=== PATIENT | female | born 1995 | race Caucasian/White ===

== ENCOUNTER 2016-09-04 19:35 | Emergency (ER) | payer BC ==
[~2016-09-04] VITALS: Ht 170.2 cm; Wt 67.7 kg
[~2016-09-04 19:35] MED LIST: FERR1TAB23; LEVO50TA PO; MTR600X PO; PRENTAB26 PO; SERT50TA PO
[2016-09-04 19:39] VITALS: TEMP 36.8; Ht 170.2 cm; Wt 67.7 kg
--- NOTE | 2016-09-04 23:11 | EMERGENCY ROOM VISIT NOTE ---
History First contact with patient: 21:19 Chief Complaint: RESPIRATORY PROBLEMS Stated Complaint: STRUGGLING TO BREATHE, TIGHT THROAT Nursing Triage Summary: Patient reports feels like her throat is swollen and tight and difficulty breathing since friday. History of Present Illness The patient is a 21 year old female who presents to the Emergency Room with complaints of feeling like her throat is tight. The patient states that her symptoms started on Friday. She feels like there is something swollen in the throat region that is making it difficulty to breathe and swallow. She is able to swallow foods without any difficulty. The patient denies any sore throat or cold symptoms. The patient states that it feels similar to when she had issues with her thyroid in the past. She has had problems with her thyroid since she was 4 years old. She has been on levothyroxine in the past. She went off of it for months ago. Her last TSH was in April and she thinks it was normal. She called her PCP yesterday about her symptoms and she was instructed by the office staff to that it was a life-threatening situation and that she should come to the emergency room. The patient did not feel that it was life- threatening and has a small at home and therefore she did not come to the emergency room until this evening. The patient states that her normal PCP is out for a hip replacement. The patient currently denies any chest pain or shortness of breath. Review of Systems 10 system review was performed and was negative unless stated otherwise history of present illness. Past Medical/Surgical History Medical Problems: (1) Cramping affecting , antepartum (2) Uterine contractions at greater than 20 weeks of gestation (3) Vaginal discharge during in third trimester Family History FHx: gallbladder disease Kidney stones Social History Smoking Status: Never Smoker Alcohol Use: none Marital Status: single Housing Status: lives with family Occupation Status: student Current/Historical Medications No Active Prescriptions or Reported Meds Allergies Coded Allergies: No Known Allergies (Unverified , 09/04/16) Physical Exam Vital Signs Date Time Temp Pulse Resp B/P Pulse Ox O2 Delivery O2 Flow Rate FiO2 09/04/16 19:39 36.8 66 18 115/68 98 Room Air Physical Exam VITALS: Temperature 36.8, blood pressure 115/68, pulse 66, respiratory rate 18, pulse ox 98% on room air GENERAL: 21-year-old white female appears in no acute distress. She is sitting comfortably on the stretcher. MENTAL Status: Alert and oriented 3. EARS: Canals clear. TMs without fluid level noted. NOSE: Nasal mucosa without erythema or engorgement. PHARYNX: No erythema or edema noted. Airway is adequate. NECK: Supple, no lymphadenopathy noted. No carotid bruits noted. Thyroid without enlargement. She does have some tenderness over the right lobe of the thyroid. No palpable nodules. LUNGS: Clear auscultation without wheezes rales or rhonchi. CARDIAC: Regular rate and rhythm without murmur. Pulses is full and equal throughout. Medical Decision & Procedures Laboratory Results Test 09/04/16 21:38 Thyroid Stimulating Hormone (TSH) 1.850 uIu/ml (0.300-4.500) ED Course The patient was evaluated. I discussed the case with Dr. Holland. He agrees that a thyroid ultrasound is not an emergency that this can be performed on an outpatient basis. The patient was not in any respiratory distress. A TSH was ordered and was within the normal range at 1.8. The patient was informed of the findings. I discussed with the patient at great length that the ultrasound needs to be obtained as an outpatient. The patient verbalized understanding. The patient was discharged home in stable condition. Medical Decision Differential diagnosis include acute thyroiditis, thyroid nodule, strep pharyngitis, peritonsillar abscess, allergic reaction The patient was not in any respiratory distress. She appeared completely fine on examination. Therefore feel that she can be worked up as an outpatient. Impression Primary Impression: Throat tightness Departure Information Dispostion Home / Self-Care Condition GOOD Prescriptions No Active Prescriptions or Reported Meds Forms WORK / SCHOOL INSTRUCTIONS, HOME CARE DOCUMENTATION FORM, IMPORTANT VISIT INFORMATION Patient Instructions My [facility] Additional Instructions Recommend that you obtain a thyroid ultrasound as an outpatient for further evaluation. Follow-up with your PCP for recheck.
[2016-09-04 23:16] VITALS: BP 116/71; PULSE 80; O2SAT 98
== END 2016-09-04 23:23 | disposition home or self-care (01) ==
LOC: C.EDB 19:37 → C.EDC 23:23
DX: R07.0 Pain in throat (principal); E07.9 Disorder of thyroid, unspecified

== ENCOUNTER → 2017-06-26 | Day surgery (SDC) | payer BC ==
--- NOTE | 2017-06-23 10:56 | HISTORY & PHYSICAL EXAMINATION ---
DATE OF ADMISSION: 06/26/2017 CHIEF COMPLAINT: Pelvic pain, dyspareunia, and heavy vaginal bleeding. HISTORY OF PRESENT ILLNESS: The patient is a 21-year-old 1, para 1. She delivered her child on 05/05/2016. Her general health is complicated by hypothyroidism, for which she is on replacement for several years. She has over 6-month history of heavy periods, at time lasting for over 12 days, coming every 28-30 days, extremely heavy bleeding for 4-5 days, passing large clots and soaking over a pad an hour. She has also had severe cramping, 5 to 6 of these days and is unresponsive to nonnarcotic pain reliever and is severe enough to interfere with her lifestyle. She has also had a long-term history of dyspareunia, specifically pain on deep penetration. This has been going on for over a year and painful enough to have her avoid having intercourse, which has also been getting progressively worse. She also complains of severe cramping with her periods when she is having heavy bleeding and this has been unresponsive to nonnarcotic pain reliever. She is presently being scheduled for D&C and diagnostic laparoscopy. It should be noted that she has a mother who has endometriosis and a sister, who has endometriosis. PAST MEDICAL HISTORY: She has a boy, 13 months, in good health. ALLERGIES: No known drug allergies. PAST SURGICAL HISTORY: She had a tendon repair of her left thumb. MEDICAL HISTORY: Hypothyroidism for 3 years. SOCIAL HISTORY: No smoking. No excessive alcohol intake. She has a job and goes to school. FAMILY HISTORY: Mom is 51, had a EDWIN for endometriosis. Father 48, in good health. Three sisters and one brother. One sister had had diagnosed endometriosis and presently is on medical treatment. REVIEW OF SYSTEMS: HEAD: No symptoms of frequent or severe headaches. EARS: No symptoms of frequent ear infections or difficulty hearing. NOSE: No symptoms of frequent nosebleeds or difficulty breathing through her nose. THROAT: No symptoms of frequent or severe sore throat or difficulty swallowing. RESPIRATORY SYSTEM: No history of asthma, chest pain, or shortness of breath. PHYSICAL EXAMINATION: GENERAL: Well-developed and well-nourished 21-year-old white female, alert and oriented x3 and cooperative, in no acute distress, appears her stated age. EYES: Conjunctivae are pink. Sclerae white. No evidence of jaundice. EARS: Had normal light reflex bilaterally. NOSE: Had normal mucosa. Septum is midline. There were no polyps. THROAT: No erythema or evidence of infection. Teeth are in good state of repair. HEAD: Normocephalic. Normal distribution of hair. NECK: Supple. Trachea midline. Thyroid is not enlarged. There is no adenopathy appreciated. Both carotids are of good intensity. CHEST: Clear to auscultation and percussion. No wheezes, rales or rhonchi appreciated. HEART: Regular rhythm. S1 and S2 are normal. BREASTS: Normal. ABDOMEN: Soft and nontender. PELVIC: Normal appearing cervix. Bimanual exam revealed exquisite tenderness in the uterosacral ligament area. No adnexal masses appreciated. MUSCULOSKELETAL: Revealed no calf tenderness. IMPRESSIONS OF THIS CASE: Hypothyroidism, hypermenorrhea, dyspareunia and suspected endometriosis.
[2017-06-23 12:14] LABS: BASO % 0.5 %; BASO ABS # 0.03 K/uL (0-0.2); EOS ABS # 0.06 K/uL (0-0.5); HEMATOCRIT 37.5 % (37-47); HEMOGLOBIN 12.2 g/dL (12.0-16.0); IG# 0.01 K/uL (0.00-0.02); LYMPH % 35.9 %; LYMPH ABS # 2.19 K/uL (1.2-3.4); MEAN CELL VOLUME 77.6 fL (80-100); MEAN CORPUSCULAR HEMOGLOBIN 25.3 pg (25-34); MEAN CORPUSCULAR HGB CONC 32.5 g/dl (32-36); MEAN PLATELET VOLUME 11.3 fL (7.4-10.4); MONO % 9.5 %; MONO ABS # 0.58 K/uL (0.11-0.59); NEUT % 52.9 %; NEUT ABS # 3.23 K/uL (1.4-6.5); PLATELET COUNT 258 K/uL (130-400); RED CELL DISTRIBUTION WIDTH CV 14.7 % (11.5-14.5); RED CELL DISTRIBUTION WIDTH SD 41.6 fL (36.4-46.3)
[2017-06-25 13:41] VITALS: Ht 167.6 cm; Wt 65.9 kg
[~2017-06-26] VITALS: Ht 167.6 cm; Wt 65.9 kg
[~2017-06-26] MED LIST changes: +ATROPINE SULFATE 0.1 MG/ML 5ML SYR IV PRN; +BUPIVACAINE 0.5 % 5 MG/1 ML MPF 30ML VIAL ONE; +DEXAMETHASONE SOD INJ 4 MG/ML VIAL ONE; +EpHEDrine SULFATE INJ 50 MG/ML AMP IV PRN; +EpHEDrine SULFATE INJ 50 MG/ML AMP ONE; +EpINEphrine INJ 1MG/ML AMP 1 MG/ML AMP ONE; +FENTANYL CITRATE INJ 50 MCG/1 ML 2 ML VIAL IV PRN; +FENTANYL CITRATE INJ 50 MCG/1 ML 2 ML VIAL ONE; -FERR1TAB23; +GLYCOPYRROLATE INJ 0.2 MG/ML VIAL ONE; +HYDROCODONE/ACETAMOPHEN 5/325MG TAB PO PRN; +HYDROmorphone INJ 1 MG/ML SYR IV PRN; +IBUPROFEN 200 MG TAB ONE; +IBUPROFEN 600 MG TAB PO PRN; +KETOROLAC TROMETHAMINE 30 MG/ML VIAL IV. PRN; +LACTATED RINGER'S 1000ML 1,000 ML IV SCH; +LEVO112T4 PO; -LEVO50TA PO; +LIDOCAINE HCL 2% 2 ML VIAL (20MG/ML) ONE; +MIDAZOLAM HCL 1 MG/ML 2ML VIAL ONE; -MTR600X PO; +NEOSTIGMINE METHYLSULFATE 5 MG/5 ML SYR ONE; +ONDANSETRON INJ 2 MG/ML 2 ML VIAL IV PRN; +ONDANSETRON INJ 2 MG/ML 2 ML VIAL ONE; +OXYCODONE/ACETAMINOPHEN 5-325 TAB PO PRN; -PRENTAB26 PO; +PROMETHAZINE HCL INJ 12.5 MG in SODIUM CHLORIDE 0.9% 50ML 50 ML IV PRN; +PROPOFOL IV EMULSION 10 MG/ML 20 ML VIAL IV ONE; +ROCURONIUM BROMIDE 10 MG/ML 5 ML VIAL IV ONE; -SERT50TA PO; +SODIUM CHLORIDE 0.9% 1000ML 1,000 ML IV SCH; +SODIUM CHLORIDE 0.9% INJ 10 ML VIAL ONE
--- NOTE | 2017-06-26 11:57 | History & Physical Bridge Note ---
H&P Re-Evaluation Bridge Note: I have examined the patient, reviewed the History & Physical and in the interval since the performance of the History & Physical I have noted the following changes of clinical significance: No changes noted
--- NOTE | 2017-06-26 13:20 | [facility] Post Operative Brief Note ---
Immediate Operative Summary Operative Date Jun 26, 2017. Pre-Operative Diagnosis Hypermenorrhea, severe dysmenorrea Post-Operative Diagnosis same Procedure(s) Performed Dilatation and Currettage, Laparoscopic evaluation Surgeon Dr Corrales Bank Runner Surgeon(s) none Estimated Blood Loss 10ml Findings EXTENSIVE ENDOMETRIOSIS Specimens A) endometrial currettings B)perineal biopsy Complication(s) None Disposition Recovery Room / PACU
--- NOTE | 2017-06-26 13:22 | Discharge Instructions-SurgCtr ---
Discharge Instructions Date of Service Jun 26, 2017. Visit Reason for Visit: Hypermenorrhea, Severe Dysmenorrhea;Pre-Op Discharge Discharge Diagnosis / Problem: ENDOMETRIOSIS Discharge Goals Goal(s): Improve function, Therapeutic intervention Activity Recommendations Activity Limitations: as noted below ACTIVITY RECOMMENDATIONS: * Avoid tampons, douching, hot tubs, pools, and intercourse until bleeding has stopped. * May shower as usual. * No strenuous activity for 24-48 hours. After 24-48 hours, you may do anything you feel like doing (driving and sports are okay). SPECIAL CARE INSTRUCTIONS: Special Diet: * Mild nausea may occur in the immediate post-operative period. * Take clear liquids such as tea, cola or bouillon until all nausea has subsided; you may then resume your normal diet. Special Care: * Light bleeding and vaginal spotting can last from a few days to 3-4 weeks. Call your doctor if bleeding becomes heavier than the heaviest part of your period. * Check your temperature twice a day for one week. If it goes above 100.4 degrees Fahrenheit (38.0 Celsius), notify your doctor. * Call your doctor's office for an appointment for 6 weeks after your surgery. FOLLOW-UP VISIT: Call your doctor's office for an appointment for 6 weeks after your surgery. SPECIAL CARE INSTRUCTIONS: * Check temperature twice daily for one week. Report any elevation over 100.4 degrees Fahrenheit (38.0 degrees Celsius). * Call office in the next few days for return appointment. * You may experience some vaginal spotting and/or bleeding, this is normal for one or two weeks and should not alarm you. * Post-operative discomfort may consist of a sore throat, a "bloated" feeling and pain in the shoulders. These are normal symptoms which usually only last for two or three days. FOLLOW UP VISIT: Keep any scheduled doctor appointments. Anesthesia . Post Anesthesia Instructions: If you have had General Anesthesia or IV Sedation: * Do not drive today. * Resume driving when surgeon permits. * Do not make important decisions or sign legal documents today. * Call surgeon for: 1. Temperature elevations greater than 101 degrees F. 2. Uncontrollable pain. 3. Excessive bleeding. 4. Persistent nausea and vomiting. 5. Medication intolerance (nausea, vomiting or rash). * For nausea and vomiting use only clear liquids such as: tea, soda, bouillon until nausea subsides, then gradually increase diet as tolerated. * If you have any concerns or questions, call your surgeon's office. If physician is unavailable and it is an emergency, call 911 or go to the nearest emergency room. . Instructions / Follow-Up Instructions / Follow-Up ACTIVITY RECOMMENDATIONS: * Avoid tampons, douching, hot tubs, pools, and intercourse until bleeding has stopped. * May shower as usual. * No strenuous activity for 24-48 hours. After 24-48 hours, you may do anything you feel like doing (driving and sports are okay). SPECIAL CARE INSTRUCTIONS: Special Diet: * Mild nausea may occur in the immediate post-operative period. * Take clear liquids such as tea, cola or bouillon until all nausea has subsided; you may then resume your normal diet. Special Care: * Light bleeding and vaginal spotting can last from a few days to 3-4 weeks. Call your doctor if bleeding becomes heavier than the heaviest part of your period. * Check your temperature twice a day for one week. If it goes above 100.4 degrees Fahrenheit (38.0 Celsius), notify your doctor. * Call your doctor's office for an appointment for 6 weeks after your surgery. FOLLOW-UP VISIT: Call your doctor's office for an appointment for 6 weeks after your surgery. ACTIVITY RECOMMENDATIONS: * Rest the first 2-3 days. You should be back to your normal activity levels by day 3. * No heavy lifting for 2 weeks. * No intercourse, tampons or douching for 1-2 weeks. * You may shower the next day. * Do not drive anytime that you are taking narcotic pain medicines. RETURN TO SCHOOL/WORK: * May return to school or work after 2-3 days. DIET: Nausea may occur in the immediate post-operative period. If so, take clear liquids such as tea, bouillon, apple juice until all nausea has subsided, then resume usual diet. MEDICATIONS: Resume previous medications unless instructed otherwise by your surgeon. Ibuprofen 200mg 2-3 tablets every 4-6 hours as needed -- OR -- Aleve 2 tablets every 8-12 hours as needed for post-operative discomfort Medications are over the counter. Tylenol may be used if above medications are contraindicated or not preferred. Medication should be taken with food or milk. Do not take on an empty stomach. SPECIAL CARE INSTRUCTIONS: * Check temperature twice daily for one week. report any elevation over 101 degrees. * You may experience some vagina spotting and/or bleeding. This is normal for 1 -2 weeks and should not be heavier than a normal period. If it is unusual in amount, call your physician. * Post-operative discomfort may consist of a sore throat, a "bloated" feeling and pain in the shoulders. these are normal symptoms, which usually only last for 2-3 days. * Remove band-aids tomorrow and shower. There is no need to replace band-aids unless there is drainage or discomfort. FOLLOW UP VISIT: Call your doctor's office for a post-operative 2 week visit if not already scheduled. Diet Recommendations Home Diet: resume previous diet Procedures Procedures Performed: Dilatation and Currettage, Laparoscopic evaluation Pending Studies Studies pending at discharge: no Medical Emergencies . Who to Call and When: Medical Emergencies: If at any time you feel your situation is an emergency, please call 911 immediately. . Non-Emergent Contact Non-Emergency issues call your: Retail Client Solutions Consultant Call Non-Emergent contact if: temperature is above 100.5 . . "Provider Documentation" section prepared by Vick Corrales. .
--- NOTE | 2017-06-26 14:01 | OPERATIVE REPORT ---
DATE OF OPERATION: 06/26/2017 INDICATIONS FOR SURGERY: Heavy prolonged vaginal bleeding associated with pelvic pain and dyspareunia. PREOPERATIVE DIAGNOSIS: Suspected endometriosis. POSTOPERATIVE DIAGNOSIS: Same. Pathology pending. SURGEON: Dr. Corrales. ESTIMATED BLOOD LOSS: 10 mL. ANESTHESIA: General. PROCEDURE: Diagnostic laparoscopy, D&C, peritoneal biopsy. OPERATIVE FINDINGS AND PROCEDURE: The patient was brought to the OR table and correctly identified by armband and conversation. General anesthesia was administered. Perineum and vagina were painted with Betadine paint along with the lower abdomen and draped in the usual sterile fashion. A metal catheter was used to empty the bladder. Careful pelvic exam under anesthesia revealed an anteverted uterus. There were no adnexal masses appreciated. Weighted speculum was placed in the posterior vagina. Anterior lip of the cervix was grasped with single tooth tenaculum. It was difficult to get into the endocervical canal. I had to use a stat several times, opening it and spreading the endocervical canal. I finally was able to sound the endometrium. It sounded to 8 cm. I used graduated dilators to gradually dilate the cervix and a small sharp curette was used to curette out the endometrial cavity. This was productive of a scant amount of normal-appearing tissue. Following this, an acorn cannula was inserted into the cervical canal to tenaculum, which was placed at 12 o'clock on the cervix. Attention was now turned to the lower abdomen. The subumbilical area was infiltrated with lidocaine with epinephrine. Subumbilical stab wound was made. Veress needle was inserted. Position was checked with normal saline. Then, 2.5 to 3 liters of carbon dioxide gas was passed under low pressure. Incision was then widened laterally. The Veress needle was removed. A large cannula and trocar was inserted. Trocar was removed. Laparoscope was inserted. Good visualization of pelvic structures was obtained at this time. A second puncture site was made 3 fingerbreadths above the pubic symphysis and the midline was infiltrated with Marcaine with epinephrine. A stab wound was placed and a 5-mm trocar and sleeve was inserted under direct visualization. Blunt probe was placed into the abdominal cavity for manipulation of the tubes and ovaries along with the acorn cannula. What could be seen was early endometriosis involving both lateral pelvic osorio and the cul-de-sac area. The cul-de-sac area also had a lot of bloody regurgitated endometrial fluid. I used a suction aspirator to suction this fluid out and then saline to wash the peritoneal surface clean. I was then able to visualize several typical endometriotic lesions between the 2 uterosacral ligaments with the typical color and puckering and scarring. I biopsied one inside the uterosacral ligaments on the patient's right side and submitted the 2 biopsy specimens for pathological evaluation. Hemostasis was excellent. There was essentially no bleeding. I photographed the biopsy site after the procedure was performed. I also photographed the extent of endometriosis along the lateral pelvic osorio. There were just multiple small endometrial implants. There was not any specific area that could be cauterized. I also flipped both the ovaries up. They were freely mobile. The ovarian surfaces did not have any endometrial implants on them nor did the tubes. Following this, fluid was removed, the gas was expressed manually and instruments were removed. Ports were cleansed with Betadine and sutured with interrupted Vicryl. I attest to the content of the Intraoperative Record and any orders documented therein. Any exception s are noted below.
--- NOTE | 2017-06-26 14:20 | Anesthesia Progress Nt - [facility] ---
Anesthesia Post Op Note Date & Time Jun 26, 2017 at 14:20 Vital Signs Pain Intensity: 3 Vital Signs Past 12 Hours Date Time Temp Pulse Resp B/P (MAP) Pulse Ox O2 Delivery O2 Flow Rate FiO2 06/26/17 14:16 59 23 06/26/17 14:16 60 23 97 06/26/17 14:15 96/60 06/26/17 14:15 37.1 58 22 96/60 97 Room Air 06/26/17 14:11 60 22 06/26/17 14:11 61 22 97 06/26/17 14:10 96/56 06/26/17 14:06 58 21 97 06/26/17 14:06 58 21 06/26/17 14:05 96/57 06/26/17 14:01 59 24 06/26/17 14:01 58 24 100 06/26/17 14:00 97/53 06/26/17 13:56 59 17 100 06/26/17 13:56 58 17 06/26/17 13:55 99/56 06/26/17 13:51 57 15 06/26/17 13:51 57 15 100 06/26/17 13:50 98/53 06/26/17 13:46 60 21 100 06/26/17 13:46 62 21 06/26/17 13:45 94/55 06/26/17 13:41 65 24 06/26/17 13:41 64 24 100 06/26/17 13:40 99/52 06/26/17 13:36 63 19 06/26/17 13:36 63 19 100 06/26/17 13:35 101/56 06/26/17 13:31 70 25 100 06/26/17 13:31 70 25 06/26/17 13:30 99/53 06/26/17 13:26 36.4 98 16 101/59 100 Mask 6 06/26/17 13:26 84 27 101/57 100 06/26/17 13:26 84 27 06/26/17 11:40 36.8 86 16 110/74 (86) 98 Room Air Notes Mental Status: alert / awake / arousable, participated in evaluation Pt Amnestic to Procedure: Yes Nausea / Vomiting: adequately controlled Pain: adequately controlled Airway Patency, RR, SpO2: stable & adequate BP & HR: stable & adequate Hydration State: stable & adequate Anesthetic Complications: no major complications apparent
[2017-06-26 14:24] VITALS: TEMP 37.1
[2017-06-26 14:52] VITALS: BP 95/59; PULSE 79; O2SAT 100
== END | disposition home or self-care (01) ==
LOC: X.SURG 11:07
PROVIDERS: ATTEND Obstetrics & Gynecology
DX: N93.9 Abnormal uterine and vaginal bleeding, unspecified (principal); R10.2 Pelvic and perineal pain; N94.10 Unspecified dyspareunia; Z79.899 Other long term (current) drug therapy

== ENCOUNTER 2020-10-16 03:57 | Inpatient (IN) ==
[2020-10-16] MEDS ORDERED: OXYTOCIN 30 UNITS/500 ML BAG IV PRN ×3 (04:46→23:03)
[2020-10-16] MEDS ORDERED: PENICILLIN G POTASSIUM 6 MU in DEXTROSE 5% 250 ML IV ONE (05:00)
[2020-10-16 05:02] LABS: Mean Corpuscular Hgb Conc 33.1 g/dL (32-36)
[2020-10-16] MEDS: LACTATED RINGER'S 1,000 ML IV PRN ×3 (05:14→16:04)
[2020-10-16 05:15] LABS: Hematocrit (blood only) 34.7 % (37-47); Hemoglobin 11.5 g/dL (12.0-16.0); Mean Corpuscular Hemoglobin 28.5 pg (25-34); Mean Corpuscular Volume 86.1 fL (80-100); RDW Coefficient of Variation 13.5 % (11.5-14.5); RDW Standard Deviation 42.9 fL (36.4-46.3); Red Blood Count 4.03 M/uL (4.2-5.4); White Blood Count 8.44 K/uL (4.8-10.8)
[2020-10-16 05:20] LABS: Mean Platelet Volume 13.2 fL (7.4-10.4); Platelet Count 146 K/uL (130-400); Platelet Estimate Normal (Normal)
--- NOTE | 2020-10-16 07:18 | History & Physical Report ---
Date of Service October 16, 2020 Assessment & Plan (1) Uterine contractions at greater than 20 weeks of gestation: 25 yo at 39.2 wks with polyhydramnios, GBS VSS Afebrile FHR reassuring COVID testing negative PCN for GBS Epidural for pain Continue to monitor (2) Polyhydramnios affecting in third trimester: Admission and Anticipated Discharge Date Admission Date: October 16, 2020 History of Present Illness Primary Care Provider: Zara Epperson PA-C Patient is a 25-year-old -0-0-1 at 39 weeks and 2 days of gestation who was scheduled for induction of labor this morning for polyhydramnios. She woke up at 3 AM with contractions and presented to labor and delivery. She denies leakage of fluid or vaginal bleeding. She reports good movements. Her has been complicated by 1) hypothyroidism on levothyroxine 2) polyhydramnios has been less than 30 cm. 3) GBS positive 4) anemia Allergies Allergy/AdvReac Type Severity Reaction Status Date / Time No Known Allergies Allergy Verified 10/06/20 13:38 Home Medications Medication Instructions Recorded Confirmed Type PNV cmb#95-ferrous fumarate-FA 1 tab PO HS 09/22/20 10/16/20 History [] levothyroxine [Synthroid] 125 mcg PO QAM 09/22/20 10/16/20 History sertraline [Zoloft] 50 mg PO HS 09/22/20 10/16/20 History ferrous sulfate 325 mg PO HS 10/06/20 10/16/20 History Patient History Medical History Anxiety History of endometriosis Hypothyroidism Family History Other No significant family history Social History Smoking Status: Never smoker Hx Alcohol Use: No Hx Substance Use: No Preferred Language: Italian Communication Ability: Effective Acoustic Intelligence Specialist Required: No Beliefs That Will Affect Care: None marital status: Current Living Situation: Spouse and Family Other Information That Helps Us Care for You: No Feels Safe at Home: Yes OB History Full-term spontaneous vaginal delivery in 2016 and, delivered a viable male infant by myself [employer] History No history of STDs, no chlamydia, gonorrhea, no herpes Review of Systems All systems reviewed & are unremarkable except as noted in HPI & below Physical Exam Constitutional: WD/WN, vitals as above well developed, well nourished and + acute distress (with ctxs) Gastrointestinal (Abdomen): normal bowel sounds, soft, nontender, no hepatosplenomegaly (gravid) Bed side US vertex Genitourinary: Manual OB Exam: + cervical dilation 3 cm, + cervical effacement 50% and + station high OB Exam Monitor Tracing: + external uterine monitor used and + category I Results & Data ([facility]) Vital Signs (Past 12 Hours) Vital Signs Temp Pulse Resp BP Pulse Ox 10/16/20 07:11 76 99 10/16/20 07:06 72 99 10/16/20 07:01 77 98 10/16/20 06:59 36.4 C L 16 10/16/20 06:55 84 126/79 10/16/20 04:18 70 121/58 L 10/16/20 04:15 36.5 C 20 10/16/20 04:12 70 121/58 L Laboratory Results Lab Results 10/16/20 10/16/20 10/16/20 Range/Units 04:45 04:45 04:53 WBC 8.44 (4.8-10.8) K/uL RBC 4.03 L (4.2-5.4) M/uL Hgb 11.5 L (12.0-16.0) g/dL Hct 34.7 L (37-47) % MCV 86.1 (80-100) fL MCH 28.5 (25-34) pg MCHC 33.1 (32-36) g/dL RDW Std Deviation 42.9 (36.4-46.3) fL RDW Coeff of Aditya 13.5 (11.5-14.5) % Plt Count 146 (130-400) K/uL MPV 13.2 H (7.4-10.4) fL Platelet Estimate Normal (Normal) COVID[facility]19 [facility] SARS-[facility]-2, RNA, NAAT NEGATIVE (NEGATIVE)
[2020-10-16] MEDS ORDERED: BUPIVACAINE 0.25% 30 ML VIAL ONE (07:19)
[2020-10-16] MEDS ORDERED: fentaNYL citrate 100 MCG/2 ML VIAL ONE (07:19)
[2020-10-16] MEDS ORDERED: ePHEDrine sulfate 50 MG/ML AMP ONE (07:19)
[2020-10-16] MEDS ORDERED: SODIUM CHLORIDE 0.9% INJ 10 ML VIAL ONE (07:19)
[2020-10-16] MEDS ORDERED: fentaNYL 2MCG/ML ROPIVACAINE 1.25MG/ML 100 ML BAG EPI ONE (07:20)
[2020-10-16] MEDS ORDERED: NALOXONE HCL 1 MG in SODIUM CHLORIDE 0.9% 1000ML 1,000 ML IV PRN (07:46)
[2020-10-16] MEDS ORDERED: ePHEDrine sulfate 50 MG/ML AMP IV PRN (07:46)
[2020-10-16] MEDS ORDERED: diphenhydrAMINE 50 MG/ML VIAL IV PRN (07:46)
[2020-10-16] MEDS ORDERED: NALOXONE HCL 0.4 MG/1 ML VIAL/CARP IV PRN (07:46)
[2020-10-16] MEDS ORDERED: ONDANSETRON INJ 2 MG/ML 2 ML VIAL IV PRN (07:46)
--- NOTE | 2020-10-16 07:49 | Anesthesiology Consultation ---
Date of Service October 16, 2020 Assessment & Plan Chart Review Chart Review: Patient NOT seen in Pre Admission Testing and Acceptable Risk for Labor Epidural Consults Requested none ASA ASA2 Proposed Anesthesia Anesthesia Type: Labor Epidural and CSE Risk / Benefits Reviewed With: PT / POA / Parent / Guardian, Accepts Plan and Informed Consent Obtained History Height/Weight Height: 5 ft 7 in Weight: 94.347 kg Allergies Allergy/AdvReac Type Severity Reaction Status Date / Time No Known Allergies Allergy Verified 10/06/20 13:38 Medications Home Medications Medication Instructions Recorded Confirmed Last Taken PNV cmb#95-ferrous fumarate-FA 1 tab PO HS 09/22/20 10/16/20 10/15/20 20:00 [] levothyroxine [Synthroid] 125 mcg PO QAM 09/22/20 10/16/20 10/15/20 06:00 sertraline [Zoloft] 50 mg PO HS 09/22/20 10/16/20 10/15/20 20:00 ferrous sulfate 325 mg PO HS 10/06/20 10/16/20 10/15/20 20:00 Active Medications Generic Name Dose Route Start Last Admin Trade Name Freq PRN Reason Stop Dose Admin Lactated Ringer's 1,000 mls @ 125 mls/hr 10/16/20 04:46 10/16/20 07:00 Lr IV 10/18/20 04:45 999 mls/hr .Q8H PRN Infusion L&D Protocol Protocol NPO Date Last Intake of Fluids: 10/16/20 Time Last Intake of Fluids: 06:30 Date Last Intake of Solids: 10/15/20 Time Last Intake of Solids: 20:30 Past Medical History Medical History Anxiety History of endometriosis Hypothyroidism Exercise / Class Metabolic Activity II 4-5 Yardwork/Stairs/Walk up hill Past Family History Family History Other No significant family history Past Anesthesia History No Hx of Anesthesia Complications and No Family Hx of Anesthesia Complications History of PONV No Hx of PONV and No Hx of Motion Sickness Social History Smoking Status: Never smoker Hx Alcohol Use: No Hx Substance Use: No Review of Systems no chest pain or sob Physical Exam Vital Signs Last Vital Signs Temp 36.4 C L 10/16/20 06:59 Pulse 86 10/16/20 07:36 Resp 16 10/16/20 06:59 BP 126/79 10/16/20 06:55 Pulse Ox 100 10/16/20 07:36 ENMT Mouth: no TMJ abnormality Thyromental Distance: > or= 3.5 Finger Breadths Mallampati Class: II Neck normal visual inspection Respiratory normal respiratory effort Auscultation: lungs clear to auscultation bilaterally Cardiovascular Rate/Rhythm: regular rate and regular rhythm Musculoskeletal Spine: normal cervical ROM Neurologic moves all extremities Psychiatric Orientation: alert and oriented x 3 Testing Laboratory Results 10/16/20 04:53
[2020-10-16] MEDS: PENICILLIN G POTASSIUM 3 MU in DEXTROSE 5% 100 ML IV PRN ×3 (09:00→16:52)
--- NOTE | 2020-10-16 09:19 | Progress Note ---
Date of Service October 16, 2020 Assessment & Plan Admission and Anticipated Discharge Date Admission Date: October 16, 2020 Subjective pt doing well FHR; CAT1 Ctx ; 7-8mins Epidural analgesia in place VE; /-3 discussed starting Pitocin augmentation. pt agreed Results & Data ([facility]) Vital Signs (Past 12 Hours) Vital Signs Temp Pulse Resp BP Pulse Ox 10/16/20 09:14 65 99/56 L 10/16/20 09:12 69 94 10/16/20 09:07 72 93 10/16/20 09:02 66 94 10/16/20 08:57 72 94 10/16/20 08:53 61 103/57 L 10/16/20 08:52 65 92 10/16/20 08:48 64 109/57 L 10/16/20 08:47 66 92 10/16/20 08:43 62 110/59 L 10/16/20 08:42 65 93 10/16/20 08:39 73 108/55 L 10/16/20 08:37 85 92 10/16/20 08:34 75 118/63 10/16/20 08:32 65 93 10/16/20 08:30 62 14 112/55 L 10/16/20 08:27 64 93 10/16/20 08:23 64 105/57 L 10/16/20 08:22 65 95 10/16/20 08:21 69 111/57 L 94 10/16/20 08:19 59 L 113/58 L 10/16/20 08:17 64 110/61 96 10/16/20 08:14 64 109/61 10/16/20 08:12 66 109/63 99 10/16/20 08:10 67 107/58 L 10/16/20 08:09 69 110/54 L 10/16/20 08:07 65 108/61 100 10/16/20 08:04 62 113/61 10/16/20 08:03 67 16 103/59 L 10/16/20 08:02 69 99 10/16/20 07:57 84 99 10/16/20 07:52 83 99 10/16/20 07:36 86 100 10/16/20 07:31 69 99 10/16/20 07:26 66 98 10/16/20 07:21 67 99 10/16/20 07:16 66 99 10/16/20 07:11 76 99 10/16/20 07:06 72 99 10/16/20 07:01 77 98 10/16/20 06:59 36.4 C L 16 10/16/20 06:55 84 126/79 10/16/20 04:18 70 121/58 L 10/16/20 04:15 36.5 C 20 10/16/20 04:12 70 121/58 L
[2020-10-16] MEDS: fentaNYL 2MCG/ML ROPIVACAINE 1.25MG/ML 100 ML BAG EPI PRN ×2 (14:34→19:35)
--- NOTE | 2020-10-16 15:34 | Progress Note ---
Date of Service October 16, 2020 Assessment & Plan Admission and Anticipated Discharge Date Admission Date: October 16, 2020 Subjective Pt doing well FHR; CAT1 Ctx 2-4mins Pit; 5MU VE 10/bulging membranes/ AROM with scalp electrode.- +meconium VE after AROM- /-2 No Umbilical cord palpated in vagina Results & Data ([facility]) Vital Signs (Past 12 Hours) Vital Signs Temp Pulse Resp BP Pulse Ox 10/16/20 15:27 77 97 10/16/20 15:22 77 129/59 L 96 10/16/20 15:17 70 97 10/16/20 15:12 73 96 10/16/20 15:07 71 95 10/16/20 15:06 67 109/62 10/16/20 15:02 68 95 10/16/20 14:57 67 95 10/16/20 14:55 37 C 20 10/16/20 14:52 66 106/57 L 96 10/16/20 14:47 74 95 10/16/20 14:42 67 95 10/16/20 14:37 66 108/54 L 97 10/16/20 14:32 69 96 10/16/20 14:30 18 10/16/20 14:27 69 95 10/16/20 14:22 69 106/55 L 95 10/16/20 14:17 69 95 10/16/20 14:12 71 95 10/16/20 14:07 69 102/56 L 95 10/16/20 14:02 68 95 10/16/20 14:00 18 10/16/20 13:57 72 95 10/16/20 13:52 71 110/59 L 95 10/16/20 13:47 69 94 10/16/20 13:42 73 95 10/16/20 13:37 70 106/54 L 94 10/16/20 13:32 70 95 10/16/20 13:30 18 10/16/20 13:27 65 95 10/16/20 13:23 67 106/56 L 10/16/20 13:22 69 94 10/16/20 13:17 73 94 10/16/20 13:12 69 95 10/16/20 13:07 72 106/53 L 94 10/16/20 13:02 82 96 10/16/20 13:00 16 10/16/20 12:57 73 96 10/16/20 12:52 73 95 10/16/20 12:51 73 105/58 L 10/16/20 12:47 76 95 10/16/20 12:42 72 95 10/16/20 12:37 73 96 10/16/20 12:36 70 105/54 L 10/16/20 12:32 68 96 10/16/20 12:30 16 10/16/20 12:27 72 95 10/16/20 12:22 64 122/67 96 10/16/20 12:17 65 95 10/16/20 12:12 67 96 10/16/20 12:07 66 124/70 97 10/16/20 12:02 66 96 10/16/20 12:00 16 10/16/20 11:57 68 97 10/16/20 11:52 66 96 10/16/20 11:51 64 118/61 10/16/20 11:47 72 96 10/16/20 11:42 71 96 10/16/20 11:37 82 118/56 L 96 10/16/20 11:32 90 96 10/16/20 11:30 16 10/16/20 11:27 70 95 10/16/20 11:22 74 95 10/16/20 11:21 71 127/63 10/16/20 11:17 75 95 10/16/20 11:12 71 95 10/16/20 11:07 72 118/62 95 10/16/20 11:02 69 96 10/16/20 11:01 37.5 C 20 10/16/20 10:57 77 95 10/16/20 10:52 75 95 10/16/20 10:51 71 125/63 10/16/20 10:47 76 95 10/16/20 10:42 75 95 10/16/20 10:37 74 119/62 95 10/16/20 10:32 75 95 10/16/20 10:30 20 10/16/20 10:27 72 95 10/16/20 10:22 76 95 10/16/20 10:17 70 96 10/16/20 10:15 85 131/97 10/16/20 10:12 71 95 10/16/20 10:07 69 95 10/16/20 10:02 70 95 10/16/20 10:00 18 10/16/20 09:59 66 120/56 L 10/16/20 09:57 75 95 10/16/20 09:52 70 96 10/16/20 09:47 68 96 10/16/20 09:44 71 119/58 L 10/16/20 09:42 67 95 10/16/20 09:37 66 97 10/16/20 09:32 67 99/55 L 94 10/16/20 09:30 16 10/16/20 09:27 78 94 10/16/20 09:22 76 93 10/16/20 09:17 70 94 10/16/20 09:14 65 99/56 L 10/16/20 09:12 69 94 10/16/20 09:07 72 93 10/16/20 09:02 66 94 10/16/20 09:00 18 10/16/20 08:57 72 94 10/16/20 08:53 61 103/57 L 10/16/20 08:52 65 92 10/16/20 08:48 64 109/57 L 10/16/20 08:47 66 92 10/16/20 08:43 62 110/59 L 10/16/20 08:42 65 93 10/16/20 08:39 73 108/55 L 10/16/20 08:37 85 92 10/16/20 08:34 75 118/63 10/16/20 08:32 65 93 10/16/20 08:30 62 14 112/55 L 10/16/20 08:27 64 93 10/16/20 08:23 64 105/57 L 10/16/20 08:22 65 95 10/16/20 08:21 69 111/57 L 94 10/16/20 08:19 59 L 113/58 L 10/16/20 08:17 64 110/61 96 10/16/20 08:14 64 109/61 10/16/20 08:12 66 109/63 99 10/16/20 08:10 67 107/58 L 10/16/20 08:09 69 110/54 L 10/16/20 08:07 65 108/61 100 10/16/20 08:04 62 113/61 10/16/20 08:03 67 16 103/59 L 10/16/20 08:02 69 99 10/16/20 07:57 84 99 10/16/20 07:52 83 99 10/16/20 07:36 86 100 10/16/20 07:31 69 99 10/16/20 07:26 66 98 10/16/20 07:21 67 99 10/16/20 07:16 66 99 10/16/20 07:11 76 99 10/16/20 07:06 72 99 10/16/20 07:01 77 98 10/16/20 06:59 36.4 C L 16 10/16/20 06:55 84 126/79 10/16/20 04:18 70 121/58 L 10/16/20 04:15 36.5 C 20 10/16/20 04:12 70 121/58 L
[2020-10-16] MEDS ORDERED: METHYLERGONOVINE MALEATE 0.2 MG/ML AMP ONE (21:58)
[2020-10-16] MEDS ORDERED: ERYTHROMYCIN OP OINT 1 GM PKT ONE (21:58)
[2020-10-16] MEDS ORDERED: SUPERCREAM 0.870% 15 GM JAR EXT PRN (23:03)
[2020-10-16] MEDS ORDERED: HYDROCORTISONE ACETATE 25 MG SUPP PR PRN (23:03)
[2020-10-16] MEDS ORDERED: DIPHTHERIA/TETANUS/PERTUSSIS 0.5 ML SYR/VIAL IM ONE (23:03)
[2020-10-16] MEDS ORDERED: BENZOCAINE 20% AER SPR 82.5 GM CAN EXT PRN (23:03)
[2020-10-16] MEDS ORDERED: oxyCODONE/ACETAMINOPHEN 5mg/325mg TAB PO PRN (23:03)
[2020-10-16] MEDS ORDERED: ACETAMINOPHEN 325 MG TAB PO PRN (23:03)
[2020-10-16] MEDS ORDERED: bisacodyL 10 MG SUPP PR PRN (23:03)
[2020-10-16] MEDS ORDERED: IBUPROFEN 600 MG TAB PO ONE (23:50)
[2020-10-17 00:04] LABS: Base Excess Cord Venous Blood -7.1 mEq/L (-7.7-1.9); Cord Venous Blood HCO3 17 mmol/L (18.4-26.8); Cord Venous Blood PCO2 30 mmHg (30.4-57.2); Cord Venous Blood PO2 30 mmHg (14.1-43.3); Cord Venous Blood pH 7.37 (7.20-7.44)
[2020-10-17 00:05] LABS: Base Excess Cord Arterial Bld -7.2 mEq/L (-9-1.8); CO2 Cord Arterial Blood 43 mmHg (39.1-73.5); HCO3 Cord Arterial Blood 19 mmol/L (19.7-28.5); Oxygen Sat Cord Arterial Blood < 60.0 % (<60); PO2 Cord Arterial Blood 15 mmHg (4.1-31.7); pH Cord Arterial Blood 7.28 (7.1-7.38)
[2020-10-17] MEDS: ACETAMINOPHEN W/CODEINE #3 1 TAB PO PRN ×3 (01:27→19:11)
[2020-10-17] MEDS: IBUPROFEN 600 MG TAB PO PRN ×3 (06:12→17:16)
[2020-10-17] MEDS: LEVOTHYROXINE SODIUM 125 MCG TABLET PO SCH (06:19)
[2020-10-17 07:30] LABS: Hematocrit (blood only) 23.9 % (37-47); Mean Corpuscular Hemoglobin 27.9 pg (25-34); Mean Corpuscular Hgb Conc 33.5 g/dL (32-36); Mean Corpuscular Volume 83.3 fL (80-100); Mean Platelet Volume 13.2 fL (7.4-10.4); Platelet Count 116 K/uL (130-400); RDW Coefficient of Variation 13.8 % (11.5-14.5); RDW Standard Deviation 42.4 fL (36.4-46.3); Red Blood Count 2.87 M/uL (4.2-5.4); White Blood Count 14.71 K/uL (4.8-10.8)
--- NOTE | 2020-10-17 07:47 | Anesthesiology Progress Note ---
Date of Service October 17, 2020 Anesthesia Post Procedure Vital Signs Vital Signs: Temp Pulse Pulse Resp BP BP Pulse Ox 10/17/20 03:10 36.8 C 76 20 116/76 97 10/17/20 01:35 36.7 C 67 18 117/63 98 10/17/20 01:04 78 97 10/17/20 00:59 74 96 10/17/20 00:57 67 18 121/68 10/17/20 00:54 72 96 10/17/20 00:49 71 97 10/17/20 00:44 74 97 10/17/20 00:42 74 115/71 10/17/20 00:39 91 H 98 10/17/20 00:34 78 99 10/17/20 00:29 81 98 10/17/20 00:24 76 98 10/17/20 00:19 82 97 10/17/20 00:14 93 H 98 10/17/20 00:12 82 145/60 H 10/17/20 00:09 79 99 10/17/20 00:04 69 98 10/16/20 23:59 70 100 10/16/20 23:58 68 150/62 H 10/16/20 23:57 18 10/16/20 23:54 70 100 10/16/20 23:49 76 99 10/16/20 23:44 64 18 128/61 99 10/16/20 23:39 64 99 10/16/20 23:34 65 98 10/16/20 23:29 60 99 10/16/20 23:27 58 L 18 138/72 10/16/20 23:24 64 98 10/16/20 23:19 67 99 10/16/20 23:14 71 99 10/16/20 23:12 206 H 18 109/77 10/16/20 23:09 73 98 10/16/20 23:04 71 94 10/16/20 22:59 61 99 10/16/20 22:57 64 18 100/71 10/16/20 22:54 69 99 10/16/20 22:49 76 98 10/16/20 22:44 61 99 10/16/20 22:39 61 100 10/16/20 22:36 55 L 145/74 H 10/16/20 22:34 60 99 10/16/20 22:29 61 99 10/16/20 22:24 60 99 10/16/20 22:21 60 147/70 H 10/16/20 22:19 59 L 99 10/16/20 22:14 62 100 10/16/20 22:09 61 100 10/16/20 22:06 61 130/67 10/16/20 22:04 61 100 10/16/20 21:59 89 100 10/16/20 21:57 90 113/63 10/16/20 21:55 176 H 179/135 H 10/16/20 21:54 104 H 100 10/16/20 21:52 93 H 207/145 H 10/16/20 21:49 88 98 10/16/20 21:44 62 98 10/16/20 21:39 85 93 10/16/20 21:36 68 151/67 H 10/16/20 21:34 79 99 10/16/20 21:30 18 10/16/20 21:29 62 96 10/16/20 21:24 73 98 10/16/20 21:19 58 L 98 10/16/20 21:14 66 95 10/16/20 21:09 70 98 10/16/20 21:04 67 98 10/16/20 21:00 18 10/16/20 20:59 74 96 10/16/20 20:54 75 97 10/16/20 20:48 69 98 10/16/20 20:42 69 96 10/16/20 20:37 64 96 10/16/20 20:32 68 96 10/16/20 20:30 18 10/16/20 20:27 70 97 10/16/20 20:22 75 97 10/16/20 20:21 85 106/56 L 10/16/20 20:17 81 97 10/16/20 20:12 54 L 97 10/16/20 20:07 60 98 10/16/20 20:02 66 97 10/16/20 20:00 18 10/16/20 19:57 68 97 10/16/20 19:52 64 98 10/16/20 19:51 68 132/63 10/16/20 19:47 65 97 10/16/20 19:42 58 L 97 10/16/20 19:37 62 135/75 96 10/16/20 19:32 61 97 10/16/20 19:30 18 10/16/20 19:27 96 H 94 10/16/20 19:22 62 97 10/16/20 19:21 58 L 143/69 H 10/16/20 19:17 63 99 10/16/20 19:12 67 99 10/16/20 19:08 36.8 C 55 L 149/73 H 10/16/20 19:07 57 L 98 10/16/20 19:02 61 100 10/16/20 19:00 18 10/16/20 18:57 58 L 99 10/16/20 18:52 51 L 100 10/16/20 18:51 53 L 134/78 10/16/20 18:47 71 100 10/16/20 18:42 80 99 10/16/20 18:37 67 97 10/16/20 18:36 62 108/59 L 10/16/20 18:32 68 97 10/16/20 18:30 16 10/16/20 18:27 65 95 10/16/20 18:22 64 108/52 L 95 10/16/20 18:17 62 93 10/16/20 18:12 59 L 93 10/16/20 18:07 61 93 10/16/20 18:06 60 115/57 L 10/16/20 18:02 59 L 93 10/16/20 18:00 18 10/16/20 17:57 61 93 10/16/20 17:53 57 L 111/56 L 10/16/20 17:52 57 L 94 10/16/20 17:47 59 L 95 10/16/20 17:42 63 97 10/16/20 17:37 57 L 96 10/16/20 17:36 62 102/56 L 10/16/20 17:32 63 94 10/16/20 17:30 18 10/16/20 17:27 59 L 94 10/16/20 17:23 59 L 114/55 L 10/16/20 17:22 60 94 10/16/20 17:17 60 95 10/16/20 17:12 62 94 10/16/20 17:07 59 L 115/57 L 94 10/16/20 17:02 59 L 96 10/16/20 17:00 20 10/16/20 16:57 62 97 10/16/20 16:53 36.9 C 16 10/16/20 16:52 62 132/58 L 97 10/16/20 16:47 62 95 10/16/20 16:42 60 96 10/16/20 16:37 59 L 120/58 L 95 10/16/20 16:32 64 96 10/16/20 16:30 16 10/16/20 16:27 61 95 10/16/20 16:22 56 L 122/59 L 97 10/16/20 16:17 57 L 97 10/16/20 16:12 59 L 97 10/16/20 16:08 53 L 117/59 L 10/16/20 16:07 54 L 97 10/16/20 16:02 56 L 98 10/16/20 16:00 18 10/16/20 15:57 59 L 99 10/16/20 15:52 63 98 10/16/20 15:51 56 L 122/63 10/16/20 15:47 59 L 97 10/16/20 15:42 59 L 98 10/16/20 15:37 79 97 10/16/20 15:36 73 128/87 10/16/20 15:32 73 96 10/16/20 15:30 18 10/16/20 15:27 77 97 10/16/20 15:22 77 129/59 L 96 10/16/20 15:17 70 97 10/16/20 15:12 73 96 10/16/20 15:07 71 95 10/16/20 15:06 67 109/62 10/16/20 15:02 68 95 10/16/20 15:00 18 10/16/20 14:57 67 95 10/16/20 14:55 37 C 20 10/16/20 14:52 66 106/57 L 96 10/16/20 14:47 74 95 10/16/20 14:42 67 95 10/16/20 14:37 66 108/54 L 97 10/16/20 14:32 69 96 10/16/20 14:30 18 10/16/20 14:27 69 95 10/16/20 14:22 69 106/55 L 95 10/16/20 14:17 69 95 10/16/20 14:12 71 95 10/16/20 14:07 69 102/56 L 95 10/16/20 14:02 68 95 10/16/20 14:00 18 10/16/20 13:57 72 95 10/16/20 13:52 71 110/59 L 95 10/16/20 13:47 69 94 10/16/20 13:42 73 95 10/16/20 13:37 70 106/54 L 94 10/16/20 13:32 70 95 10/16/20 13:30 18 10/16/20 13:27 65 95 10/16/20 13:23 67 106/56 L 10/16/20 13:22 69 94 10/16/20 13:17 73 94 10/16/20 13:12 69 95 10/16/20 13:07 72 106/53 L 94 10/16/20 13:02 82 96 10/16/20 13:00 16 10/16/20 12:57 73 96 10/16/20 12:52 73 95 10/16/20 12:51 73 105/58 L 10/16/20 12:47 76 95 10/16/20 12:42 72 95 10/16/20 12:37 73 96 10/16/20 12:36 70 105/54 L 10/16/20 12:32 68 96 10/16/20 12:30 16 10/16/20 12:27 72 95 10/16/20 12:22 64 122/67 96 10/16/20 12:17 65 95 10/16/20 12:12 67 96 10/16/20 12:07 66 124/70 97 10/16/20 12:02 66 96 10/16/20 12:00 16 10/16/20 11:57 68 97 10/16/20 11:52 66 96 10/16/20 11:51 64 118/61 10/16/20 11:47 72 96 10/16/20 11:42 71 96 10/16/20 11:37 82 118/56 L 96 10/16/20 11:32 90 96 10/16/20 11:30 16 10/16/20 11:27 70 95 10/16/20 11:22 74 95 10/16/20 11:21 71 127/63 10/16/20 11:17 75 95 10/16/20 11:12 71 95 10/16/20 11:07 72 118/62 95 10/16/20 11:02 69 96 05/10/21 11:01 37.5 C 20 10/16/20 10:57 77 95 10/16/20 10:52 75 95 10/16/20 10:51 71 125/63 10/16/20 10:47 76 95 10/16/20 10:42 75 95 10/16/20 10:37 74 119/62 95 10/16/20 10:32 75 95 10/16/20 10:30 20 10/16/20 10:27 72 95 10/16/20 10:22 76 95 10/16/20 10:17 70 96 10/16/20 10:15 85 131/97 10/16/20 10:12 71 95 10/16/20 10:07 69 95 10/16/20 10:02 70 95 10/16/20 10:00 18 10/16/20 09:59 66 120/56 L 10/16/20 09:57 75 95 10/16/20 09:52 70 96 10/16/20 09:47 68 96 10/16/20 09:44 71 119/58 L 10/16/20 09:42 67 95 10/16/20 09:37 66 97 10/16/20 09:32 67 99/55 L 94 10/16/20 09:30 16 10/16/20 09:27 78 94 10/16/20 09:22 76 93 10/16/20 09:17 70 94 10/16/20 09:14 65 99/56 L 10/16/20 09:12 69 94 10/16/20 09:07 72 93 10/16/20 09:02 66 94 10/16/20 09:00 18 10/16/20 08:57 72 94 10/16/20 08:53 61 103/57 L 10/16/20 08:52 65 92 10/16/20 08:48 64 109/57 L 10/16/20 08:47 66 92 10/16/20 08:43 62 110/59 L 10/16/20 08:42 65 93 10/16/20 08:39 73 108/55 L 10/16/20 08:37 85 92 10/16/20 08:34 75 118/63 10/16/20 08:32 65 93 10/16/20 08:30 62 14 112/55 L 10/16/20 08:27 64 93 10/16/20 08:23 64 105/57 L 10/16/20 08:22 65 95 10/16/20 08:21 69 111/57 L 94 10/16/20 08:19 59 L 113/58 L 10/16/20 08:17 64 110/61 96 10/16/20 08:14 64 109/61 10/16/20 08:12 66 109/63 99 10/16/20 08:10 67 107/58 L 10/16/20 08:09 69 110/54 L 10/16/20 08:07 65 108/61 100 10/16/20 08:04 62 113/61 10/16/20 08:03 67 16 103/59 L 10/16/20 08:02 69 99 10/16/20 07:57 84 99 10/16/20 07:52 83 99 Pain Intensity Bilateral Abdomen: Pain Intensity: 0 Bilateral Back: Pain Intensity: 5 Perineal: Pain Intensity: 5 Notes Mental Status: alert / awake / arousable and participated in evaluation Nausea / Vomiting: adequately controlled Pain: adequately controlled Airway Patency, RR, SpO2: stable & adequate BP & HR: stable & adequate Hydration State: stable & adequate Neuraxial Anesthesia: was administered and sensory block is resolving Anesthetic Complications: no major complications apparent and Pt Satisfied with anesthetic care Notes: Epidural site clean, dry and intact. No signs of edema, erythema or bruising at insertion site. Pt instructed to request anesthesia if she has residual lower extremity numbness or if she develops lower extremity pain or weakness, back pain or headache.
--- NOTE | 2020-10-17 08:07 | Delivery Summary ---
DATE OF OPERATION: 10/16/2020 The patient delivered a live infant in left occiput anterior presentation. There was nuchal cord, which was easily reduced. There was also moderate meconium, which was known prior to delivery. Infant was delivered, placed on mother's abdomen. Delayed cord clamp was performed. Cord blood and cord gases were obtained. Placenta was spontaneously delivered. Inspection of the perineum showed a third-degree midline laceration which was repaired in layers with 2-0 and 3-0 Vicryl. Rectal exam post repair showed good sphincter tone, no sutures were palpated in the rectum. All instruments were removed from the vagina and accounted for x2 including sponges, needles, and retractors. Baby and mother are doing well in recovery. Estimated blood loss was 500 mL. I attest to the content of the Intraoperative Record and any orders documented therein. Any exception s are noted below.
[2020-10-17] MEDS: DOCUSATE SODIUM 100 MG CAP PO SCH ×2 (08:40→21:43)
[2020-10-17] MEDS: PRENATAL VITAMIN 1 TAB PO SCH (08:40)
[2020-10-17] MEDS: FERROUS SULFATE 325 MG TAB PO SCH (08:40)
--- NOTE | 2020-10-17 08:45 | Obstetrical Progress Note ---
Date of Service October 17, 2020 Assessment & Plan Admission and Anticipated Discharge Date Admission Date: October 16, 2020 Subjective PPD#1 doing well passing gas tolerating diet out of bed OK Physical Exam Constitutional: WD/WN, vitals as above well developed and comfortable abdomen soft and non-tender fundus firm no edema neg Priscilla's tent d/c in AM Results & Data ([facility]) Vital Signs (Past 12 Hours) Vital Signs Temp Pulse Pulse Resp BP BP Pulse Ox 10/17/20 03:10 36.8 C 76 20 116/76 97 10/17/20 01:35 36.7 C 67 18 117/63 98 10/17/20 01:04 78 97 10/17/20 00:59 74 96 10/17/20 00:57 67 18 121/68 10/17/20 00:54 72 96 10/17/20 00:49 71 97 10/17/20 00:44 74 97 10/17/20 00:42 74 115/71 10/17/20 00:39 91 H 98 10/17/20 00:34 78 99 10/17/20 00:29 81 98 10/17/20 00:24 76 98 10/17/20 00:19 82 97 10/17/20 00:14 93 H 98 10/17/20 00:12 82 145/60 H 10/17/20 00:09 79 99 10/17/20 00:04 69 98 10/16/20 23:59 70 100 10/16/20 23:58 68 150/62 H 10/16/20 23:57 18 10/16/20 23:54 70 100 10/16/20 23:49 76 99 10/16/20 23:44 64 18 128/61 99 10/16/20 23:39 64 99 10/16/20 23:34 65 98 10/16/20 23:29 60 99 10/16/20 23:27 58 L 18 138/72 10/16/20 23:24 64 98 10/16/20 23:19 67 99 10/16/20 23:14 71 99 10/16/20 23:12 206 H 18 109/77 10/16/20 23:09 73 98 10/16/20 23:04 71 94 10/16/20 22:59 61 99 10/16/20 22:57 64 18 100/71 10/16/20 22:54 69 99 10/16/20 22:49 76 98 10/16/20 22:44 61 99 10/16/20 22:39 61 100 10/16/20 22:36 55 L 145/74 H 10/16/20 22:34 60 99 10/16/20 22:29 61 99 10/16/20 22:24 60 99 10/16/20 22:21 60 147/70 H 10/16/20 22:19 59 L 99 10/16/20 22:14 62 100 10/16/20 22:09 61 100 10/16/20 22:06 61 130/67 10/16/20 22:04 61 100 10/16/20 21:59 89 100 10/16/20 21:57 90 113/63 10/16/20 21:55 176 H 179/135 H 10/16/20 21:54 104 H 100 10/16/20 21:52 93 H 207/145 H 10/16/20 21:49 88 98 10/16/20 21:44 62 98 10/16/20 21:39 85 93 10/16/20 21:36 68 151/67 H 10/16/20 21:34 79 99 10/16/20 21:30 18 10/16/20 21:29 62 96 10/16/20 21:24 73 98 10/16/20 21:19 58 L 98 10/16/20 21:14 66 95 10/16/20 21:09 70 98 10/16/20 21:04 67 98 10/16/20 21:00 18 10/16/20 20:59 74 96 10/16/20 20:54 75 97 10/16/20 20:48 69 98 Laboratory Results 10/16/20 10/16/20 10/16/20 04:45 04:45 04:53 WBC 8.44 RBC 4.03 L Hgb 11.5 L Hct 34.7 L MCV 86.1 MCH 28.5 MCHC 33.1 RDW Std Deviation 42.9 RDW Coeff of Aditya 13.5 Plt Count 146 MPV 13.2 H Platelet Estimate Normal Cord ABG pH Cord ABG pCO2 Cord ABG pO2 Cord ABG HCO3 Cord ABG Base Excess Cord ABG O2 Sat Cord VBG pH Cord VBG pCO2 Cord VBG pO2 Cord VBG HCO3 Cord VBG Base Excess Cord VBG O2 Sat Blood Gas Comments COVID-19 [facility] SARS-[facility]-2, RNA, NAAT NEGATIVE 10/16/20 10/16/20 10/17/20 21:46 21:46 06:35 WBC 14.71 H RBC 2.87 L Hgb 8.0 L D Hct 23.9 L MCV 83.3 MCH 27.9 MCHC 33.5 RDW Std Deviation 42.4 RDW Coeff of Aditya 13.8 Plt Count 116 L MPV 13.2 H Platelet Estimate Cord ABG pH 7.28 Cord ABG pCO2 43 Cord ABG pO2 15 Cord ABG HCO3 19 L Cord ABG Base Excess -7.2 Cord ABG O2 Sat < 60.0 Cord VBG pH 7.37 Cord VBG pCO2 30 L Cord VBG pO2 30 Cord VBG HCO3 17 L Cord VBG Base Excess -7.1 Cord VBG O2 Sat 69.0 H Blood Gas Comments MCDANIEL MCDANIEL COVID-19 Eval Order SARS-CoV-2, RNA, NAAT
[2020-10-17] MEDS ORDERED: bisacodyL 5 MG TABEC PO SCH (20:00)
[2020-10-17] MEDS ORDERED: SERTRALINE HCL 100 MG TABLET PO SCH (21:00)
[2020-10-18 06:26] LABS: Hematocrit (blood only) 22.5 % (37-47); Hemoglobin 7.5 g/dL (12.0-16.0)
[2020-10-18] MEDS: LEVOTHYROXINE SODIUM 125 MCG TABLET PO SCH (06:35)
[2020-10-18] MEDS: IBUPROFEN 600 MG TAB PO PRN (07:45)
[2020-10-18] MEDS: DOCUSATE SODIUM 100 MG CAP PO SCH (07:45)
[2020-10-18] MEDS: PRENATAL VITAMIN 1 TAB PO SCH (07:45)
[2020-10-18] MEDS: FERROUS SULFATE 325 MG TAB PO SCH (07:45)
--- NOTE | 2020-10-18 10:07 | Obstetrical Progress Note ---
Date of Service October 18, 2020 Assessment & Plan Admission and Anticipated Discharge Date Admission Date: October 16, 2020 Physical Exam Physical Exam: PPD #2 doing well passing gas tolerating diet out of bed Results & Data ([facility]) Vital Signs (Past 12 Hours) Vital Signs abdomen soft and non-tender fundus firm for d/c after voiding Temp Pulse Resp BP Pulse Ox 10/18/20 07:40 36.8 C 81 18 127/82 97 10/18/20 00:00 36.4 C L 85 18 106/66 Laboratory Results 10/16/20 10/16/20 10/16/20 04:45 04:45 04:53 WBC 8.44 RBC 4.03 L Hgb 11.5 L Hct 34.7 L MCV 86.1 MCH 28.5 MCHC 33.1 RDW Std Deviation 42.9 RDW Coeff of Aditya 13.5 Plt Count 146 MPV 13.2 H Platelet Estimate Normal Cord ABG pH Cord ABG pCO2 Cord ABG pO2 Cord ABG HCO3 Cord ABG Base Excess Cord ABG O2 Sat Cord VBG pH Cord VBG pCO2 Cord VBG pO2 Cord VBG HCO3 Cord VBG Base Excess Cord VBG O2 Sat Blood Gas Comments COVID-19 [facility] SARS-CoV-2, RNA, NAAT NEGATIVE 10/16/20 10/16/20 10/17/20 21:46 21:46 06:35 WBC 14.71 H RBC 2.87 L Hgb 8.0 L D Hct 23.9 L MCV 83.3 MCH 27.9 MCHC 33.5 RDW Std Deviation 42.4 RDW Coeff of Aditya 13.8 Plt Count 116 L MPV 13.2 H Platelet Estimate Cord ABG pH 7.28 Cord ABG pCO2 43 Cord ABG pO2 15 Cord ABG HCO3 19 L Cord ABG Base Excess -7.2 Cord ABG O2 Sat < 60.0 Cord VBG pH 7.37 Cord VBG pCO2 30 L Cord VBG pO2 30 Cord VBG HCO3 17 L Cord VBG Base Excess -7.1 Cord VBG O2 Sat 69.0 H Blood Gas Comments MCDANIEL MCDANIEL COVID-19 Eval Order SARS-CoV-2, RNA, NAAT 10/18/20 05:59 WBC RBC Hgb 7.5 L Hct 22.5 L MCV MCH MCHC RDW Std Deviation RDW Coeff of Aditya Plt Count MPV Platelet Estimate Cord ABG pH Cord ABG pCO2 Cord ABG pO2 Cord ABG HCO3 Cord ABG Base Excess Cord ABG O2 Sat Cord VBG pH Cord VBG pCO2 Cord VBG pO2 Cord VBG HCO3 Cord VBG Base Excess Cord VBG O2 Sat Blood Gas Comments COVID-19 Eval Order SARS-CoV-2, RNA, NAAT
== END 2020-10-18 14:50 | disposition home or self-care (01) | DRG 768 ==
LOC: OPB 03:57 → 4S1 03:58 → 4S2 10-17 01:36